=== PATIENT | male | born 1995 | race Caucasian/White ===

== ENCOUNTER 2022-02-22 13:27 | Emergency (ER) | payer OTHER ==
[~2022-02-22] VITALS: Ht 185.4 cm; Wt 70.5 kg
[2022-02-22 13:32] VITALS: TEMP 97.4
[2022-02-22 14:11] VITALS: BP 138/80; PULSE 76
== END 2022-02-22 14:12 | disposition home or self-care (01) ==
LOC: COL.ER 13:27
DX: S09.90XA Unspecified injury of head, initial encounter (principal); R11.0 Nausea; H53.9 Unspecified visual disturbance; Z79.01 Long term (current) use of anticoagulants; Z28.311 Partially vaccinated for COVID-19; W20.8XXA Other cause of strike by thrown, projected or falling object, initial encounter